=== PATIENT | female | born 1955 | race Caucasian/White ===

== ENCOUNTER 2018-11-15 07:59 | Outpatient (CLI) | payer BC ==
--- NOTE | 2018-11-15 08:49 | RAD ---
XR Chest Pa Lat STANDARD HISTORY: Cough COMPARISON: None FINDINGS: The heart size is normal. The lungs are well expanded without focal areas of consolidation, pneumothorax or pleural effusions. IMPRESSION: No radiographic evidence of acute cardiopulmonary process.
--- NOTE | 2018-11-15 10:57 | BD ---
DEXA BONE MINERAL DENSITY STUDY: HISTORY: Osteoporosis screening. Asymptomatic menopausal state. COMPARISON: None. FINDINGS: LUMBAR SPINE BMD (g/cm2) T-SCORE Z-SCORE L1 1.017 0.2 1.7 L2 1.033 0.0 1.6 L3 1.079 0.0 1.6 L4 0.978 -0.8 1.0 TOTAL 1.028 -0.2 1.4 BMD (g/cm2) T-SCORE Z-SCORE LEFT FEMORAL NECK: 0.800 -0.4 1.0 TOTAL LEFT HIP: 1.151 1.7 2.8 WHO CLASSIFICATION: Normal. IMPRESSION: Normal bone mineral density. POS: [facility]
== END 2018-11-15 08:00 | disposition home or self-care (01) ==
LOC: BICMAMMO 07:59
PROVIDERS: ATTEND Physician Assistant
DX: R05 Cough (principal); Z78.0 Asymptomatic menopausal state; Z78.9 Other specified health status
CPT/HCPCS: 71046; 77080

== ENCOUNTER 2019-02-09 09:01 | Outpatient (CLI) | payer BC | END 2019-02-09 09:02 | disposition home or self-care (01) | LOC: CTENTCT 09:01 | PROVIDERS: ATTEND Otolaryngology Plastic Surgery within the Head & Neck | DX: J32.9 Chronic sinusitis, unspecified (principal) | CPT/HCPCS: 70486 ==

== ENCOUNTER 2019-11-27 13:38 | Outpatient (CLI) | payer BC ==
--- NOTE | 2019-11-27 15:03 | MRI ---
EXAM: MRI lumbar spine without contrast HISTORY: Low back pain and left-sided sciatica COMPARISON: None TECHNIQUE: Multiple planar multisequence MR images were obtained of the lumbar spine without contrast . FINDINGS: The vertebral bodies and intervertebral discs demonstrate normal height and alignment without fractur e or subluxation. Generalized disc desiccation is seen. The prevertebral and paraspinal soft tissues are unremarkable. No marrow signal abnormality is present. The conus medullaris terminates normally at T12/L1. T12/L1: No significant posterior bulge or protrusion. No posterior facet arthrosis. No central karoline l stenosis. No neural foraminal stenosis L1/2: No significant posterior bulge or protrusion. No posterior facet arthrosis. No central canal stenosis. No neural foraminal stenosis L2/3: Small right lateral disc bulge. No posterior facet arthrosis. No central canal stenosis. Mil d right neural foraminal stenosis L3/4: Small generalized concentric disc bulge. Moderate bilateral posterior facet arthrosis. Mild c entral canal stenosis. Moderate right and mild left neural foraminal stenosis L4/5: Small generalized concentric disc bulge. Moderate bilateral posterior facet arthrosis. No annie tral canal stenosis. Moderate right and mild left neural foraminal stenosis L5/S1: No significant posterior bulge or protrusion. Mild bilateral posterior facet arthrosis. No c entral canal stenosis. No neural foraminal stenosis IMPRESSION: Degenerative changes of the lumbar spine as above
== END 2019-11-27 13:39 | disposition home or self-care (01) ==
LOC: BICMRI 13:38
PROVIDERS: ATTEND Physician Assistant
DX: M51.26 Other intervertebral disc displacement, lumbar region (principal); M54.42 Lumbago with sciatica, left side; G89.29 Other chronic pain; M47.816 Spondylosis without myelopathy or radiculopathy, lumbar region
CPT/HCPCS: 72148

== ENCOUNTER 2020-01-19 12:57 | Outpatient (CLI) | payer BC ==
--- NOTE | 2020-01-19 14:09 | CT ---
CT LUMBAR SPINE NONCONTRAST: DATE: 01/19/2020 HISTORY: 64-year-old female with low back pain and left sciatica COMPARISON: None FINDINGS: There are 5 lumbar-type vertebrae. Vertebral body heights are maintained. No major scoliosis. No pars interarticularis defects. Mild to moderate disc space narrowing at L3-4. No severe disc space narrowing at any level. Vacuum joint phenomenon at bilateral SI joints. T12-L1:Essentially normal. L1-2:Essentially normal. L2-3:Mild disc bulge. No central stenosis and no neural foraminal stenosis. L3-4:Minimal anterolisthesis of L3 on L4 due to moderate bilateral facet DJD. Mild to moderate right, and mild left, neural foraminal stenosis. Mild or minimal central spinal canal stenosis. L4-5:Severe bilateral facet DJD, right worse than left. Diffuse disc bulge. Moderate ligamentum flavu m thickening bilaterally. Mild to moderate central spinal canal stenosis. Mild to moderate thecal sac stenosis. Moderate right and mild to moderate left neural foraminal stenosis. L5-S1:Small central disc protrusion slightly indents ventral surface of thecal sac. No central or karen ral foraminal stenosis. Mild bilateral facet DJD. IMPRESSION: 1) high-grade bilateral facet osteoarthrosis at L4-5 causing mild to moderate central spinal canal st enosis 2) no significant central spinal canal stenosis at any other level. 3) minimal spondylolisthesis at L3-4 due to facet osteoarthrosis. 4) degenerative changes at bilateral SI joints.
== END 2020-01-19 12:58 | disposition home or self-care (01) ==
LOC: EDBD → BICCT 12:57
PROVIDERS: ATTEND Neurological Surgery
DX: M54.5 Low back pain (principal); M47.816 Spondylosis without myelopathy or radiculopathy, lumbar region; M48.061 Spinal stenosis, lumbar region without neurogenic claudication; M43.16 Spondylolisthesis, lumbar region; M47.818 Spondylosis without myelopathy or radiculopathy, sacral and sacrococcygeal region
CPT/HCPCS: 72131

== ENCOUNTER 2023-04-09 10:40 | Outpatient (CLI) | payer MEDICARE, BC | END 2023-04-09 10:41 | disposition home or self-care (01) | LOC: MRI 10:40 | PROVIDERS: ATTEND Physician Assistant | DX: R22.2 Localized swelling, mass and lump, trunk (principal); M47.814 Spondylosis without myelopathy or radiculopathy, thoracic region; M89.9 Disorder of bone, unspecified | CPT/HCPCS: 72146 ==

== ENCOUNTER 2023-05-12 13:21 | Outpatient (CLI) | payer MEDICARE, BC | END 2023-05-12 13:22 | disposition home or self-care (01) | LOC: BICMAMMO 13:21 | PROVIDERS: ATTEND Physician Assistant | DX: Z12.31 Encounter for screening mammogram for malignant neoplasm of breast (principal) | CPT/HCPCS: 77063; 77067 ==

== ENCOUNTER 2023-05-17 12:26 | Outpatient (CLI) | payer MEDICARE, BC | END 2023-05-17 12:27 | disposition home or self-care (01) | LOC: SCSMRI 12:26 | PROVIDERS: ATTEND Neurological Surgery | DX: D33.4 Benign neoplasm of spinal cord (principal) | CPT/HCPCS: 72157 ==

== ENCOUNTER 2024-04-17 12:36 | Outpatient (CLI) | payer MEDICARE | END 2024-04-17 12:37 | disposition home or self-care (01) | LOC: SCSMRI 12:36 | PROVIDERS: ATTEND Neurological Surgery | DX: D33.4 Benign neoplasm of spinal cord (principal) | CPT/HCPCS: 72157; 82565 ==

== ENCOUNTER 2024-05-23 11:09 | Outpatient (CLI) | payer MEDICARE | END 2024-05-23 11:10 | disposition home or self-care (01) | LOC: BICMAMMO 11:09 | PROVIDERS: ATTEND Family Medicine | DX: Z12.31 Encounter for screening mammogram for malignant neoplasm of breast (principal); Z80.3 Family history of malignant neoplasm of breast | CPT/HCPCS: 77063; 77067 ==

== ENCOUNTER 2025-04-09 14:07 | Outpatient (CLI) | payer MEDICARE | END 2025-04-09 14:08 | disposition home or self-care (01) | LOC: SCSMRI 14:07 | PROVIDERS: ATTEND Otolaryngology Plastic Surgery within the Head & Neck | DX: H81.23 Vestibular neuronitis, bilateral (principal) | CPT/HCPCS: 70553; 76376 ==

== ENCOUNTER 2025-05-08 13:48 | Outpatient (CLI) | payer MEDICARE ==
[2025-05-08 14:30] LABS: Estimated GFR - POC 80.0
== END 2025-05-08 13:49 | disposition home or self-care (01) ==
LOC: SCSMRI 13:48
PROVIDERS: ATTEND Neurological Surgery
DX: D36.10 Benign neoplasm of peripheral nerves and autonomic nervous system, unspecified (principal); D49.7 Neoplasm of unspecified behavior of endocrine glands and other parts of nervous system; M51.24 Other intervertebral disc displacement, thoracic region
CPT/HCPCS: 36415; 72157; 82565

== ENCOUNTER 2025-05-29 08:11 | Outpatient (CLI) | payer MEDICARE | END 2025-05-29 08:12 | disposition home or self-care (01) | LOC: BICMAMMO 08:11 | PROVIDERS: ATTEND Family Medicine | DX: Z12.31 Encounter for screening mammogram for malignant neoplasm of breast (principal); Z80.3 Family history of malignant neoplasm of breast; R92.343 Mammographic extreme density, bilateral breasts | CPT/HCPCS: 77063; 77067 ==